=== PATIENT | male | born 1970 ===

== ENCOUNTER → 2018-07-30 21:00 | Outpatient (ROUT) | payer OTHER, SELFPAY ==
[2018-07-30 21:32] LABS: Add Manual Diff / Slide Review NO; Basophils Absolute Auto 0 /uL (0-100); Basophils Percent Auto 0.4 % (0-2); Eosinophils Absolute Auto 100 /uL (0-450); Eosinophils Percent Auto 1.9 % (2-4); Hematocrit 49.6 % (41-53); Lymphocytes Absolute Auto 1700 /uL (1100-4500); Lymphocytes Percent Auto 25.7 % (25-40); Mean Corpuscular HGB Conc 32.4 % (30-36); Mean Corpuscular Hemoglobin 28.1 PG (26-34); Monocytes Absolute Auto 500 /uL (0-900); Neutrophils Absolute Auto 4400 /uL (1500-7000); Platelet Count 213 X10^3/uL (150-400); Red Cell Distribution Width 14.4 % (11.6-14.8); White Blood Cell Count 6.8 X10^3/uL (4.5-11.0)
[2018-07-30 21:34] LABS: Alanine Aminotransferase 45 IU/L (21-72); Albumin 4.7 g/dL (3.5-5.0); Albumin Globulin Ratio 1.4 (1.0-2.8); Alkaline Phosphatase 72 U/L (38-126); Aspartate Aminotransferase 38 IU/L (17-59); BUN Creatinine Ratio 13.3 (6-22); Bilirubin Total 0.7 mg/dL (0.2-1.3); Blood Urea Nitrogen 12 mg/dL (9-20); Calcium 9.5 mg/dL (8.4-10.2); Carbon Dioxide 29 mmol/L (22-32); Chloride 100 mmol/L (98-107); Estimated Glomerular Filt Rate > 60.0 mL/min (>60); Globulin 3.3 g/dL (1.7-4.1); Glucose 92 mg/dL (70-100); HEMOLYSIS 19 (0-50); Potassium 4.3 mmol/L (3.4-5.1); Sodium 140 mmol/L (137-145); Uric Acid 7.1 mg/dL (3.5-8.5)
[2018-07-30 21:38] LABS: High Sensitivity CRP - Cardiac 0.8 mg/L (1.0-3.0)
[2018-07-30 22:09] LABS: Ferritin 37.9 ng/mL (17.9-464)
[2018-07-30 22:10] LABS: Estradiol, Total 39.2 pg/mL
[2018-08-03 14:54] LABS: PSA Total 0.69 ng/mL (< 4.01)
== END ==
PROVIDERS: Visit Provider Naturopath
DX: R53.83 Other fatigue (principal); R63.5 Abnormal weight gain; M79.672 Pain in left foot; Z13.89 Encounter for screening for other disorder
CPT/HCPCS: 36415; 80053; 82670; 82728; 84153; 84154; 84270; 84402; 84403; 84443; 84550; 85025; 86140